=== PATIENT | female | born 1975 | race Caucasian/White ===

== ENCOUNTER 2020-02-22 20:54 | Emergency (ER) | payer SELFPAY ==
[2020-02-22 21:17] VITALS: BP 172/86; PULSE 75; RESP 15; TEMP 37; O2SAT 100; BMI 33.6
--- NOTE | 2020-02-22 21:23 | XR_ITS ---
PROCEDURE: XR WRIST LT MIN 3V CLINICAL INDICATION: fall Pain following injury, deformity COMPARISON: No exams were available for comparison FINDINGS: Comminuted distal radial fracture with intra-articular involvement noted with dorsal displacement of the distal fracture fragment by 8 mm and dorsal angulation the. There is comminution of the articular surface with mild widening of the distal radius. There is avulsion fracture of the ulnar styloid process slightly displaced IMPRESSION: Comminuted displaced distal radial fracture with ulnar styloid avulsion Dictated by: Jayson Juarez MD 02/23/2020 05:33 Electronically signed by Jayson Juarez MD in [place] 02/23/2020 05:33
--- NOTE | 2020-02-22 21:57 | HMH.EDUPEXT ---
ED Disposition Clinical Impression: Fracture of wrist Qualifiers: Encounter type: initial encounter Fracture type: closed Laterality: left Qualified Code(s): S62.102A - Fracture of unspecified carpal bone, left wrist, initial encounter for closed fracture Disposition: Home, Self-Care Condition on Discharge: Good Instructions: DI for Wrist Fracture Additional Instructions: call dr landeros in am Referrals: Provider,MD Niesha [Primary Care Provider] - Marce Hyman MD [Physician] - - Critical Care Critical Care Time: No Attestation: On 02/22/20, the high probability of a clinically significant, sudden or life threatening deterioration of the following system(s) required my full and direct attention, intervention and personal management. The time I documented below is in addition to time spent performing reported procedures but includes the following listed in this critical care notation. Medical Decision Making - Medical Records Medical records reviewed: Yes: I reviewed the patient's medical records. - Jose Inquiry Pt receiving controlled substance: No Vital Signs: 02/22/20 21:17 Temperature 98.6 F Temperature Source Oral Pulse Rate [Right Brachial] 75 Respiratory Rate 15 Blood Pressure [Right Arm] 172/86 H Blood Pressure Mean [Right Arm] 114 Blood Pressure Source [Right Arm] Automatic Cuff Blood Pressure Position [Right Arm] Sitting 02 Sat by Pulse Oximetry 100 Oxygen Delivery Method Room Air Orders (Tests/Meds): ORDERS Category Date Time Status CT wrist LT wo con Stat Cat Scan 02/22/20 21:58 Taken Wrist XR left minimum 3 views [XR wrist LT min 3V] Stat Exams 02/22/20 21:23 Taken - Radiology Data #1 Image(s): Wrist Image Reviewed: Yes I reviewed the patient's radiology image Preliminary Findings: Abnormal (fx seen) - CT Data CT Scan: Other (lt wrist ) Time Received: 23:13 - Physician Consults Physician Consulted: gerry Reason -: Pt condition Upper Extremity HPI - General Chief Complaint: Extremity Injury, Upper Stated Complaint: AO 1927 Fell, injured l wrist Time Seen by Provider: 02/22/20 21:57 Mode of Arrival: Ambulatory Source of Information: Patient, Spouse, Medical Record Limitations: No Limitations Description of Symptoms (Recalled from ER Triage Doc. by RN): Patient reports she fell while walking and out down her left arm to break fall injuring her left wrist. - History of Present Illness HPI narrative: fell with lt wrist injury at home complaint: injury to: left, wrist Onset (ago): hour(s) Other Extremity Injury: Left: wrist Other injuries: none Handedness: right Place: home Severity: moderate Context: fall Associated symptoms: denies other symptoms - Related Data Allergies Allergy/AdvReac Type Severity Reaction Status Date / Time No Known Allergies Allergy Verified 02/22/20 21:23 [facility] History - Hepatitis A Screen Drug use history?: No High risk sexual behaviors?: No History of sexually transmitted infection?: No Currently employed?: No Childcare worker?: No Do you have indoor plumbing?: Yes Do you have electricity?: Yes Attestation statement:: This patient has been screened for Hepatitis A risk factors. I have reviewed the patient's past medical history: Yes ROS Obtained: Yes All systems reviewed & no additional complaints - Constitutional Constitutional: Denies fever(s) - Eyes Eyes: Denies change in vision - ENT Ears, Nose, Mouth, and Throat: Denies sore throat - Cardiovascular Cardiovascular: Denies chest pain - Respiratory Respiratory: No cough - Gastrointestinal Gastrointestingal: Denies: abdominal pain - Genitourinary Female Genitourinary: Denies hematuria - Musculoskeletal Musculoskeletal: Reports as per HPI, Reports joint pain, Reports deformity, Reports joint swelling, Reports limited range of motion - Integumentary/Breasts Skin/Breast: Denies rash - Neurologic Neurologic: Denies
--- NOTE | 2020-02-22 21:58 | CT_ITS ---
PROCEDURE: CT WRIST LT WO CON CLINICAL HISTORY: left wrist fracture Evaluate comminuted fracture. Injury with pain and deformity COMPARISON: No exams were available for comparison TECHNIQUE: Axial images obtained with sagittal and coronal reformats. All CT scans at the facility use one or more dose reduction, viz: automated exposure control, ma/kV adjustment per patient size (including targeted exams where dose is matched to indication, i.e. head), or iterative reconstruction technique. FINDINGS: There is a severely comminuted fracture involving the distal radius with intra-articular extension. There is dorsal angulation of the distal fracture fragment and dorsal displacement of the distal fracture fragment 7 mm. The dominant fracture plane is transversely oriented also with several longitudinal components extending into the articular surface. There is some separation the fragments of the intra-articular component. There is associated avulsion of the ulnar styloid process with mild displacement of the avulsed fragment medially. There is generalized soft tissue swelling about the wrist IMPRESSION: Comminuted displaced distal radial fracture with ulnar avulsion as described above Dictated by: Jayson Juarez MD 02/23/2020 08:55 Electronically signed by Jayson Juarez MD in [place] 02/23/2020 08:55
--- NOTE | 2020-02-22 23:12 | PC.NURSE ---
splint placed to left arm per dr tolbert; sling in place per nursing
--- NOTE | 2020-02-22 23:15 | PC.NURSE ---
refused pain medication upon discharge
[2020-02-22 23:29] VITALS: BP 148/68; PULSE 70; RESP 15; TEMP 37; O2SAT 100
== END 2020-02-22 23:31 | disposition home or self-care (01) ==
PROVIDERS: Emergency Provider Emergency Medicine
DX: S62.102A Fracture of unspecified carpal bone, left wrist, initial encounter for closed fracture (principal); W01.0XXA Fall on same level from slipping, tripping and stumbling without subsequent striking against object, initial encounter; Y92.019 Unspecified place in single-family (private) house as the place of occurrence of the external cause
CPT/HCPCS: 29125; 73110; 73200; 99283

== ENCOUNTER → 2020-02-24 12:36 | Outpatient (CLI) | payer SELFPAY ==
--- NOTE | 2020-02-24 12:43 | XR_ITS ---
PROCEDURE: XR WRIST LT MIN 3V CLINICAL INDICATION: post reduction Follow-up fracture COMPARISON: No exams were available for comparison FINDINGS: Status post closed reduction. Comminuted distal radial fracture is present with prominent transverse component and intra-articular lateral component. There is mild lateral displacement of the lateral fracture fragment by approximately 6 mm. There is dorsal angulation of the distal fracture fragment. The dorsal angulation and displacement has improved compared to the previous exam. Avulsion of the ulnar styloid process noted. IMPRESSION: Status post closed reduction with improved alignment and decreased displacement Dictated by: Jayson Juarez MD 02/24/2020 14:16 Electronically signed by Jayson Juarez MD in [place] 02/24/2020 14:16
== END ==
PROVIDERS: Visit Provider Orthopaedic Surgery
DX: S62.102A Fracture of unspecified carpal bone, left wrist, initial encounter for closed fracture (principal)
CPT/HCPCS: 73110

== ENCOUNTER → 2020-03-03 09:55 | Outpatient (CLI) | payer SELFPAY ==
--- NOTE | 2020-03-03 09:58 | XR_ITS ---
PROCEDURE: XR WRIST LT MIN 3V CLINICAL INDICATION: left wrist fx COMPARISON: XR WRIST LT MIN 3V from 02/22/2020 XR WRIST LT MIN 3V from 02/24/2020 FINDINGS: Extremity is still casted and there is no definite evidence of healing of a comminuted impaction fracture of the distal radial metaphysis and ulnar styloid. IMPRESSION: As above Dictated by: Joel Pinto 03/03/2020 10:15 Electronically signed by Joel Pinto in [place] 03/03/2020 10:15
--- NOTE | 2020-03-03 11:20 | XR_ITS ---
PROCEDURE: XR WRIST LT MIN 3V CLINICAL INDICATION: alignment check from cast; distal radius fx COMPARISON: XR WRIST LT MIN 3V from 02/22/2020 XR WRIST LT MIN 3V from 02/24/2020 XR WRIST LT MIN 3V from 03/03/2020 FINDINGS: There is no significant interval change. The extremity is casted. Is no change in alignment of the comminuted fractures of the distal radial metaphysis and ulnar styloid. IMPRESSION: As above Dictated by: Joel Pinto 03/03/2020 11:41 Electronically signed by Joel Pinto in [place] 03/03/2020 11:41
== END ==
PROVIDERS: Visit Provider Orthopaedic Surgery
DX: S62.102A Fracture of unspecified carpal bone, left wrist, initial encounter for closed fracture (principal)
CPT/HCPCS: 73110

== ENCOUNTER → 2020-03-21 10:00 | Outpatient (CLI) | payer SELFPAY ==
--- NOTE | 2020-03-21 10:02 | XR_ITS ---
PROCEDURE: XR WRIST LT MIN 3V CLINICAL INDICATION: DRF Follow-up fracture COMPARISON: XR WRIST LT MIN 3V from 02/22/2020 XR WRIST LT MIN 3V from 02/24/2020 XR WRIST LT MIN 3V from 03/03/2020 XR WRIST LT MIN 3V from 03/03/2020 FINDINGS: Exam is obtained through a cast. There is a comminuted impacted distal radial fracture with mild dorsal angulation of the distal fracture fragment with intra-articular involvement. There is lateral despite placement of the distal fracture fragment by 5 mm. There is an associated ulnar styloid avulsion fracture. IMPRESSION: No change status post closed reduction distal radial and ulnar fracture Dictated by: Jayson Juarez MD 03/21/2020 15:28 Electronically signed by Jayson Juarez MD in [place] 03/21/2020 15:28
== END ==
PROVIDERS: Visit Provider Orthopaedic Surgery
DX: S62.102A Fracture of unspecified carpal bone, left wrist, initial encounter for closed fracture (principal)
CPT/HCPCS: 73110

== ENCOUNTER 2021-06-25 17:24 | Emergency (ER) | payer SELFPAY ==
[2021-06-25 17:40] VITALS: BP 146/85; PULSE 120; RESP 18; TEMP 39.3; O2SAT 98; BMI 36.6; BMI 36.8
[2021-06-25 17:56] LABS: Apearance,Urine Cloudy (Clear); Color,Urine Red (Yellow)
[2021-06-25 17:57] LABS: Bilirubin,Urine Negative (Negative); Blood, Urine 3+ (Negative); Glucose,Urine (UA) Negative (Negative); Ketones,Urine Negative (Negative); PH,Urine 7.5 (5.0-8.5); Protein,Urine 1+ (Negative); Specific Gravity, Urine 1.015 (1.005-1.030); UTC Leukocyte Esterase,Urine 2+ (Negative); UTC Nitrate,Urine Negative (Negative); Urobilinogen,Urine 1 EU/dl (0.2)
--- NOTE | 2021-06-25 18:24 | HMH.EDUTC ---
[facility] [place] Clinical Impression: Strep throat UTI (urinary tract infection) Qualifiers: Urinary tract infection type: site unspecified Hematuria presence: with hematuria Qualified Code(s): N39.0 - Urinary tract infection, site not specified Disposition: Home, Self-Care Condition on Discharge: Good Instructions: Strep Throat, DI for Strep Throat, DI for Urinary Tract Infection (UTI) Additional Instructions: *Monitor Temp, Over the counter Motrin or Tylenol as directed/as needed Tylenol every 4 hours and Motrin every 6 hours (as long as your family doctor has told you that you can take it) for fever or pain. and straight to ER if unable to lower temp less than 101.0 after medication given *Warm salt water gargles may help to soothe the throat *Throat Lozenges *Warm fluids like tea with honey may help to soothe the throat *Sleep elevated *Humidifier/Vaporizer *If you did not take Penicillin shot or was unable to, start taking antibiotic immediately and make sure that you take it for the FULL length of time although you should start to feel better in 24-48 hours *change toothbrush and toothpaste 24-48 hours after starting to take antibiotics so you do not reinfect yourself Monitor Temp. Tylenol and/or Ibuprofen as needed. ER if fever is no less than 101 despite alternating Tylenol and Ibuprofen * Encourage fluids, water, Gatorade, powerade, pedialyte if infant/toddler/or child *Cold fluids, popsicles and ice cream may feel good on his throat Follow up IMMEDIATELY for new or worsening symptoms or no Noticeable improvement over the next 48-72 hours. 911 for difficulty breathing or swallowing *Increase fluids. Water not Soda or Tea *Start antibiotic immediately and be sure to take as ordered for the FULL length of time although you should start to see improvement over the next 48 hours *Be SURE to follow up anytime for new or worsening symptoms with your family doctor. AND in 48 hours for urine culture results with your family doctor, if you do not have a doctor then you may call back to the [facility] for urine culture results and further treatment. We do recommend that you choose and establish care with a Primary Care Physician. AND follow up with them in 10-14 days to repeat UA to ensure infection is resolved and blood no longer present *Be sure to let your PCP know that we sent urine cultures from the [facility] so they can follow up to ensure that you area the on the correct antibiotic Call your doctor office and make appointment for 48 hours (2 days from today) to follow up and get the results of your urine culture and further treatment Prescriptions: Cefdinir [Omnicef 300mg Capsule] 300 mg PO BID #20 cap Transmission Status: Received by [facility] #[id number] Referrals: Provider,Referral, MD [Primary Care Provider] - As needed Time of Disposition: 19:16 Medical Decision Making - Jose Inquiry Pt receiving controlled substance: No Jose was queried for this patient: No Vital Signs: 06/25/21 17:40 06/25/21 19:13 06/25/21 19:14 Temperature 102.8 F H 100.1 F H 100.1 F H Temperature Source Oral Oral Pulse Rate 120 H Pulse Rate [Right Radial] 120 H Respiratory Rate 18 18 Blood Pressure 146/85 H Blood Pressure [Right Arm] 146/85 H Blood Pressure Mean [Right Arm] 105 Blood Pressure Source [Right Arm] Automatic Cuff Blood Pressure Position [Right Arm] Sitting 02 Sat by Pulse Oximetry 98 Oxygen Delivery Method Room Air - Lab Data Lab results reviewed: Yes: I reviewed the patient's lab results. Lab Results 06/25/21 17:55: Urine Color Red, Urine Appearance Cloudy, Urine pH 7.5, Ur Specific [place] 1.015, Urine Protein 1+, Urine Glucose (UA) Negative, Urine Ketones Negative, Urine Blood 3+, Urine Nitrate Negative, Urine Bilirubin Negative, Urine Urobilinogen 1, Ur Leukocyte Esterase 2+ A 06/25/21 18:25: Influenza Type A Ag Negative, Influenza Type B Ag Negative 06/25/21 18:25: Strep Scn Rapid [facility] P
[2021-06-25 18:39] LABS: UTC Strep Screen (Rapid) Positive (Negative)
[2021-06-25 19:01] LABS: UTC Influenza A Antigen Negative (Negative); UTC Influenza B Antigen Negative (Negative)
[2021-06-25 19:13] VITALS: TEMP 37.8
[2021-06-25 19:14] VITALS: BP 146/85; PULSE 120; RESP 18; TEMP 37.8; O2SAT 98
[2021-06-25 19:30] LABS: Adenovirus,PCR Not Detected (NotDetected); Bordetella Pertussis Not Detected (NotDetected); Chlamydophila Pneumoniae, PCR Not Detected (NotDetected); Coronavirus 19, PCR Not Detected (NotDetected); Coronavirus 229E Not Detected (NotDetected); Coronavirus NL63 Not Detected (NotDetected); Coronavirus OC43 Not Detected (NotDetected); Coronovirus HKU1,PCR Not Detected (NotDetected); Human Metapneumovirus Not Detected (NotDetected); Influenza A, PCR Not Detected (NotDetected); Influenza AH1, 2009 Not Detected (NotDetected); Influenza AH1, PCR Not Detected (NotDetected); Influenza AH3,PCR Not Detected (NotDetected); Influenza B, PCR Not Detected (NotDetected); Mycoplasma Pneumoniae, PCR Not Detected (NotDetected); Parainfluenza 1, PCR Not Detected (NotDetected); Parainfluenza 2, PCR Not Detected (NotDetected); Parainfluenza 3, PCR Not Detected (NotDetected); Parainfluenza 4, PCR Not Detected (NotDetected); Respiratory Syncytial Virus Not Detected (NotDetected); Rhinovirus/Enterovirus Not Detected (NotDetected)
== END 2021-06-25 19:26 | disposition home or self-care (01) ==
LOC: ER 17:39 → UTC 17:40
PROVIDERS: Emergency Provider Nurse Practitioner
DX: J02.0 Streptococcal pharyngitis (principal); N30.00 Acute cystitis without hematuria; B96.20 Unspecified Escherichia coli [E. coli] as the cause of diseases classified elsewhere; Z20.822 Contact with and (suspected) exposure to COVID-19
CPT/HCPCS: 81003; 87086; 87088; 87186; 87581; 87632; 87798; 87804; 87880; 96372; 99203; C9803; G0463; U0003; U0005

== ENCOUNTER 2021-06-26 20:16 | Emergency (ER) | payer SELFPAY ==
[2021-06-26 20:18] VITALS: BP 130/70; PULSE 122; RESP 16; TEMP 39.6; O2SAT 98; BMI 36.6
--- NOTE | 2021-06-26 20:43 | HMH.EDUTC ---
[facility] [place] Clinical Impression: Strep throat UTI (urinary tract infection) Qualifiers: Urinary tract infection type: site unspecified Hematuria presence: with hematuria Qualified Code(s): N39.0 - Urinary tract infection, site not specified Disposition: Home, Self-Care Condition on Discharge: Good Instructions: Acetaminophen (Alternative Therapy), DI for Strep Throat, DI for Urinary Tract Infection (UTI) Additional Instructions: Drink plenty of fluids. Take tylenol or ibuprofen for pain or fever. Keep taking the medications as directed. Follow up with your regular doctor. GO TO THE ER FOR ANY WORSENING SYMPTOMS Take tylenol (acetaminophen) or ibuprofen regularly for the next few days. If you continue to run a fever and not starting to feel better, please return tomorrow and go to the Emergency Room. Prescriptions: Acetaminophen [Acetaminophen 325mg tab] 650 mg PO Q6HP PRN #30 tab PRN Reason: As Needed For Fever Or Pain Transmission Status: Received by [facility] #[id number] Referrals: Provider,Referral, [Primary Care Provider] - Time of Disposition: 20:59 Medical Decision Making - Medical Records Medical records reviewed: No: I reviewed the patient's medical records. - Jose Inquiry Pt receiving controlled substance: No Vital Signs: 06/26/21 20:18 06/26/21 21:08 Temperature 103.3 F H 103.0 F H Temperature Source Oral Oral Pulse Rate 120 H Pulse Rate [Right] 122 H Respiratory Rate 16 16 Blood Pressure 130/70 Blood Pressure [Right Arm] 130/70 Blood Pressure Mean [Right Arm] 90 Blood Pressure Source Automatic Cuff Blood Pressure Source [Right Arm] Automatic Cuff Blood Pressure Position Sitting Blood Pressure Position [Right Arm] Sitting 02 Sat by Pulse Oximetry 98 Oxygen Delivery Method Room Air Room Air Orders (Tests/Meds): ED MEDICATIONS Discontinued Medications Generic Name Dose Route Start Last Admin Trade Name Freq PRN Reason Stop Dose Admin Acetaminophen 1,000 mg 06/26/21 20:35 Acetaminophen 500mg Tab PO 06/26/21 20:36 ONCE ONE Acetaminophen 650 mg 06/26/21 20:37 06/26/21 20:38 Acetaminophen 325mg Tab PO 06/26/21 20:38 650 mg ONCE ONE Administration Ibuprofen 600 mg 06/26/21 20:35 Ibuprofen 600 Mg Tablet PO 06/26/21 20:36 ONCE ONE Ibuprofen 400 mg 06/26/21 20:37 06/26/21 20:38 Ibuprofen 400 Mg Tablet PO 06/26/21 20:38 400 mg ONCE ONE Administration Medical Decision Narrative: She has not been trying to control her fever at home with tylenol or ibuprofen. She refused to be transferred to the ER for further evaluation. [facility] [facility] [place] - General Stated complaint: fever.SCHWAB Time Seen by Provider: 06/26/21 20:43 Mode of Arrival: Ambulatory Source of Information: Patient Limitations: No Limitations Description of Symptoms (Recalled from Triage Doc. by RN): pt diagnosed with strep and UTI yesterday. C/o fever today HEENT Symptoms (Recalled from RN notes): No Resp Symptoms (Recalled from RN notes): No Skin Symptoms (Recalled from RN notes): No MS Symptoms (Recalled from RN notes): No Functional Status (Recalled from RN notes): na - History of Present Illness Provider Complaint: She states that she has had a fever all day. Last night, she was diagnosed with strep throat and a UTI. She has not taken any tylenol today. This morning she did take ibuprofen 400 mg, but she states that she did not think it helped any. She denies worsening symptoms. She denies worsening back pain. - Related Data Previous Rx's Medication Instructions Recorded Cefdinir [Omnicef 300mg Capsule] 300 mg PO BID #20 cap 06/25/21 Acetaminophen [Acetaminophen 325mg 650 mg PO Q6HP PRN #30 tab 06/26/21 tab] Allergies Allergy/AdvReac Type Severity Reaction Status Date / Time No Known Allergies Allergy Verified 03/21/20 10:48 - Worker's Comp Is this a Worker's Comp case?: No [facility] History
[2021-06-26 21:08] VITALS: BP 130/70; PULSE 120; RESP 16; TEMP 39.4; O2SAT 98
== END 2021-06-26 21:09 | disposition home or self-care (01) ==
PROVIDERS: Emergency Provider Nurse Practitioner Family
DX: J02.0 Streptococcal pharyngitis (principal); N39.0 Urinary tract infection, site not specified
CPT/HCPCS: 99202; G0463